=== PATIENT | female | born 2000 | race Caucasian/White ===

== ENCOUNTER 2021-05-16 20:36 | Emergency (ER) | payer OTHER ==
[~2021-05-16] VITALS: Ht 162.6 cm; Wt 75.0 kg
[2021-05-16 20:44] VITALS: BP 126/80; Ht 162.6 cm; Wt 75.0 kg
[2021-05-16] MEDS ORDERED: CEPHALEXIN500 M1 PO (21:11)
[2021-05-16] MEDS ORDERED: CLINDAMYCIN HC300 MG PO (21:11)
[2021-05-16] MEDS ORDERED: TORADOL10 MG PO (21:11)
== END 2021-05-16 21:19 | disposition home or self-care (01) ==
LOC: D.ER 20:36
DX: L05.01 Pilonidal cyst with abscess (principal)

== ENCOUNTER 2021-05-18 04:33 | Observation (INO) | payer OTHER ==
[~2021-05-18] VITALS: Ht 162.6 cm; Wt 75.0 kg
--- NOTE | ~2021-05-18 | OP ---
PATIENT NAME: RAE BAUM MEDICAL RECORD: [id number] :98 [facility]ATION:[facility] ADMISSION DATE:05/18/21 SURGEON: AMADEO AKINS MD DATE OF OPERATION: 05/18/2021 PREOPERATIVE DIAGNOSIS: Infected pilonidal abscess. POSTOPERATIVE DIAGNOSIS: Infected pilonidal abscess. PROCEDURE: I&D of pilonidal cyst. SURGEON: Amadeo Akins MD DESCRIPTION OF PROCEDURE: The patient was placed in the jackknife prone position and the rectal region was prepped and draped in sterile fashion. Using electrocautery, we dissected through the skin and subcutaneous tissues in the midline of the gluteal crease. We immediately encountered a large collection of purulent material. Cultures were taken times 3. The wound was then suctioned free and any bleeding that was found was treated with electrocautery. I ended up treating all of the cook and floor of the cystic cavity. There was a lot inflammatory changes to the surrounding tissues. I did not find any tracking or fistulous connections to this. We eventually irrigated out the wound bed with peroxide solution and then packed the wound with a 2-inch Kerlix dipped in peroxide. COMPLICATIONS: None. CONDITION: Stable. ANESTHESIA: General endotracheal and local. BLOOD LOSS: 30 mL. TRANSINT:[id number] Voice Confirmation ID: [id number] DOCUMENT ID: [id number] AMADEO AKINS MD CC: [id number] DICTATION DATE: 05/18/21 1218 CIRCUS LABORER: 05/18/21 1232 ADM IN [place] [id number] [place] [address]
[~2021-05-18 04:33] MED LIST: CEPHALEXIN500 M1 PO; CLINDAMYCIN HC300 MG PO; TORADOL10 MG PO
[2021-05-18 05:37] LABS: CALC OSMOLALITY 278 mosm/kg (275-300); CALCIUM 8.8 mg/dL (8.5-10.1); CARBON DIOXIDE 24.5 mmol/L (21.0-32.0); CHLORIDE - SERUM 104 mmol/L (98-107); CREATININE - SERUM 0.9 mg/dL (0.6-1.3); GLUCOSE 107 mg/dL (74-106); POTASSIUM - SERUM 3.4 mmol/L (3.5-5.1); SODIUM 141 mmol/L (136-145); UREA NITROGEN 8 mg/dL (7-18); eGFR NON AFRICAN AMERICAN 82 mL/min (90-120)
[2021-05-18 05:42] LABS: ALBUMIN 3.5 g/dL (3.4-5.0); ALKALINE PHOSPHATASE 79 U/L (30-120); ALT (SGPT) 25 U/L (10-68); BILIRUBIN - TOTAL 0.34 mg/dL (0.2-1.3); C-REACTIVE PROTEIN 9.6 mg/dL (0.0-0.9); PROTEIN - SERUM 7.6 g/dL (6.4-8.2)
[2021-05-18 05:43] LABS: BASOPHILS 0.4 % (0-2); EOSINOPHILS 0.7 % (0-7); HEMOGLOBIN 12.7 g/dL (12-16); LYMPHOCYTES 29.1 % (15-50); MCH 28.7 pg (26.0-34.0); MCHC 33.4 g/dL (31.0-37.0); MCV 85.9 fL (80.0-100.0); MEAN PLATELET VOLUME 8.8 fL (7.4-10.4); NEUTROPHILS 61.8 % (40-80); PLATELET COUNT 261 10x3/uL (130-400); RBC 4.43 10x6/uL (4.00-5.40); RDW 13.8 % (11.5-14.5)
[2021-05-18 05:54] LABS: HCG SERUM NEGATIVE (NEGATIVE)
--- NOTE | 2021-05-18 07:12 | NUR ---
PATIENT LYING IN BED, AWAKE AND ALERT, LOOKING ON PHONE. NO DISTRESS NOTED. RESPIRATIONS EVEN AND UNLABORED. CALL ORTIZ IN REACH, SIDE RAILS UP X 1, BED IN LOW POSITION. INSTRUCTED TO CALL FOR ANY NEEDS.
[2021-05-18 08:01] VITALS: BP 113/60
--- NOTE | 2021-05-18 10:58 | NUR ---
PATIENT TAKEN TO THE OR AT THIS TIME FOR DR. AKINS. CONSENTS SIGNED AND SENT WITH SURGICAL PERSONNEL. PATIENT AWAKE AND ALERT, DRESSED IN GOWN. ALL BELONGINGS WITH PATIENT. IV DRY AND INTACT.
[2021-05-18 11:05] VITALS: Ht 162.6 cm; Wt 75.0 kg
[2021-05-18] MEDS ORDERED: HYDROCODON-ACE1 EAC7 PO (12:15)
--- NOTE | 2021-05-18 14:59 | NUR ---
1415 IV DC'D. CATHETER TIP INTACT. NO BLEEDING AT SITE. BANDAID APPLIED. REVIEWED DISCHARGE INSTRUCTIONS WITH PT WHO VOICES UNDERSTANDING OF THESE INSTRUCTIONS.
--- NOTE | 2021-05-18 15:03 | NUR ---
1420 PT'S PAIN LEVEL IS A 5 OUT OF 10. SHE DECLINED THE SUGGESTION OF A PAIN PILL PRIOR TO DISCHARGE HOME. SHE WANTS TO WAIT LONGER BEFORE SHE TAKES ANY MEDICATION.
== END 2021-05-18 17:46 | disposition home or self-care (01) ==
LOC: D.ER 04:33 → OBSVTIME 06:34 → D.EDHOLD 06:34
PROVIDERS: Family Medicine; ADMIT Surgery; ATTEND Surgery
DX: L05.01 Pilonidal cyst with abscess (principal)